=== PATIENT | female | born 2005 | race African-American/Black ===

== ENCOUNTER 2023-12-04 20:52 | Emergency (ER) | payer SELFPAY ==
[~2023-12-04] VITALS: Ht 162.6 cm; Wt 55.0 kg
[2023-12-04 20:54] VITALS: O2SAT 98
[2023-12-04 22:10] LABS: BASOPHILS % 0.2 % (0.0-2.0); EOSINOPHILS % 0.4 % (0.0-5.0); HEMATOCRIT. 42.1 % (36.0-48.0); HEMOGLOBIN. 13.9 g/dL (12.0-16.0); LYMPHOCYTES % 24.1 % (20.0-50.0); MEAN CORPUSCULAR HEMOGLOBIN 32.2 pg (28.0-32.0); MEAN CORPUSCULAR HGB CONC 32.9 g/dL (31.0-37.0); MEAN CORPUSCULAR VOLUME 97.9 fL (81.0-99.0); MEAN PLATELET VOLUME 8.4 fl (7.4-10.4); MONOCYTES % 7.4 % (2.0-8.0); NEUTROPHILS % 67.9 % (40.0-76.0); PLATELET 208 x1000/uL (130-400); RED CELL DISTRIBUTION WIDTH 13.7 % (11.6-14.6); WHITE BLOOD COUNT 10.9 x1000/uL (4.5-11.0)
[2023-12-04 22:12] LABS: CHLORIDE 104 mEq/L (98-107); POTASSIUM 2.9 mEq/L (3.5-5.1); SODIUM 139 mEq/L (136-145)
[2023-12-04 22:13] LABS: CALCIUM 9.7 mg/dL (8.7-10.4); CARBON DIOXIDE 26 mEq/L (21-32)
[2023-12-04 22:18] LABS: CREATININE 0.8 mg/dL (0.6-1.0); ETHANOL BLOOD 36 mg/dL (<10); GLUCOSE 56 mg/dL (70-105); UREA NITROGEN BLOOD 8 mg/dL (9-23)
[2023-12-04 22:20] LABS: ACETAMINOPHEN < 2 ug/mL (10-30); ALANINE AMINOTRANSFERASE 15 IU/L (10-49); ALBUMIN 4.8 g/dL (3.2-4.8); ASPARTATE AMINOTRANSFERASE 31 IU/L (<34); BILIRUBIN DIRECT 0.2 mg/dL (<=3.0); BILIRUBIN TOTAL 0.7 mg/dL (0.1-1.0); PROTEIN TOTAL 7.9 g/dL (6.0-8.3)
[2023-12-04 22:36] LABS: HCG SCREEN NEGATIVE
[2023-12-04] MEDS: POTASSIUM CHLORIDE 20MEQ TABLET SR PO ONE (23:00)
[2023-12-06 04:11] VITALS: BP 110/65; PULSE 67; RESP 16; TEMP 36.72516; O2SAT 97
[2023-12-06] MEDS: POTASSIUM CHLORIDE 20MEQ/PACKET PO ONE (04:15)
== END 2023-12-06 04:17 | disposition home or self-care (01) ==
LOC: ER 20:52
DX: R45.851 Suicidal ideations (principal); R46.2 Strange and inexplicable behavior
CPT/HCPCS: 80076; 80048; 80307; 80329; 80320; 84703; 85025; 36415; 99285; Z7610; G0480

== ENCOUNTER 2023-12-06 04:25 | Emergency (ER) | payer SELFPAY ==
[~2023-12-06] VITALS: Ht 162.6 cm; Wt 61.5 kg
[2023-12-06 04:30] VITALS: BP 109/64; PULSE 87; RESP 18; O2SAT 97; O2SAT 98
[2023-12-06 10:11] VITALS: TEMP 98.2
[2023-12-06] MEDS: ACETAMINOPHEN 325MG TABLET PO ONE (10:11)
== END 2023-12-06 10:45 | disposition home or self-care (01) ==
LOC: ER 04:25
DX: R21 Rash and other nonspecific skin eruption (principal); F20.9 Schizophrenia, unspecified; F31.9 Bipolar disorder, unspecified
CPT/HCPCS: 99282; Z7610

== ENCOUNTER 2025-02-04 06:37 | Emergency (ER) | payer MEDICAID, OTHER ==
[~2025-02-04] VITALS: Ht 165.1 cm; Wt 64.0 kg
[2025-02-04 06:39] VITALS: BP 100/57; PULSE 99; RESP 16; TEMP 97.9; O2SAT 100
[2025-02-04] MEDS ORDERED: ACETAMINOPHEN 325MG TABLET PO ONE (15:30)
== END 2025-02-04 15:47 | disposition left against medical advice (07) ==
LOC: ER 06:37
DX: S60.511A Abrasion of right hand, initial encounter (principal); S60.512A Abrasion of left hand, initial encounter; F20.9 Schizophrenia, unspecified; F31.9 Bipolar disorder, unspecified; Y08.89XA Assault by other specified means, initial encounter; Y93.89 Activity, other specified; Y92.89 Other specified places as the place of occurrence of the external cause; Y99.8 Other external cause status
CPT/HCPCS: 99283